=== PATIENT | female | born 1990 ===

== ENCOUNTER 2017-09-28 20:54 | Emergency (ER) | payer SELFPAY | END 2017-09-28 23:58 | disposition left against medical advice (07) | LOC: ED 20:54 | DX: Z04.1 Encounter for examination and observation following transport accident (principal); Z53.21 Procedure and treatment not carried out due to patient leaving prior to being seen by health care provider; V89.2XXA Person injured in unspecified motor-vehicle accident, traffic, initial encounter; Y93.89 Activity, other specified; Y99.8 Other external cause status; Y92.410 Unspecified street and highway as the place of occurrence of the external cause ==